=== PATIENT | female | born 1960 | race American Indian/Alaskan Native ===

== ENCOUNTER 2018-11-11 21:58 | Emergency (ER) | payer MEDICARE ==
--- NOTE | 2018-11-11 22:45 | Emergency Department Report ---
Chief Complaint: GI Bleed Stated Complaint: BLOOD CLOTS IN STOOL Time Seen by Provider: 11/11/18 22:42 - HPI History of Present Illness: generalized abd cramping pt had one episode of bright red blood which she says was a moderate amount no N/V/D denies any hx of hemorrhoids pt had a colonoscopy, a year ago which she states was normal hx of breast CA, 5 years in remission, double mastectomy 2011 mother from colon CA at age 42 MSE screening note: Focused history and physical exam performed. Due to findings the following was ordered: CBC, CMP, type and screen ED Disposition for MSE Condition: Stable
[2018-11-11 23:07] LABS: Basophils # (Auto) 0.1 K/mm3 (0.0-0.1); Basophils % (Auto) 0.8 % (0.0-1.8); Eosinophils # (Auto) 0.1 K/mm3 (0.0-0.4); Eosinophils % (Auto) 1.4 % (0.0-4.3); Hematocrit 40.3 % (30.3-42.9); Hemoglobin 13.5 gm/dl (10.1-14.3); Lymphocytes # (Auto) 3.1 K/mm3 (1.2-5.4); Lymphocytes % (Auto) 39.5 % (13.4-35.0); Mean Corpuscular HGB Conc 33 % (30-34); Mean Corpuscular Volume 84 fl (79-97); Monocytes # (Auto) 0.4 K/mm3 (0.0-0.8); Monocytes % (Auto) 4.6 % (0.0-7.3); Platelet Count 286 K/mm3 (140-440); Red Blood Count 4.79 M/mm3 (3.65-5.03); Red Cell Distribution Width 16.4 % (13.2-15.2)
[2018-11-11 23:31] LABS: Alanine Aminotransferase 14 units/L (7-56); BUN/Creatinine Ratio 16; Blood Urea Nitrogen 13 mg/dL (7-17); Calcium 9.3 mg/dL (8.4-10.2); Hemolysis Index 6
--- NOTE | 2018-11-12 01:19 | Emergency Department Report ---
ED GI Bleed HPI - General Chief complaint: GI Bleed Stated complaint: BLOOD CLOTS IN STOOL Time Seen by Provider: 11/11/18 22:42 Source: patient Mode of arrival: Ambulatory Limitations: No Limitations - History of Present Illness Initial comments: 58-year-old female presents to the ED with rectal bleeding. Patient states she began to have periumbilical cramping abdominally she needed to have a bowel movement. Patient states when she went to the bathroom she passed blood rectally. Patient denies history of previous episodes of GI bleed. Patient d enies nausea or vomiting. MD complaint: gross hematochezia -: This evening Location: periumbilical Radiation: none Severity scale (0 -10): 9 Quality: cramping Consistency: now resolved Improves with: none Worsens with: none Associated Symptoms: denies: nausea, vomiting, fever/chills - Related Data Allergies Allergy/AdvReac Type Severity Reaction Status Date / Time No Known Allergies Allergy Unverified 11/11/18 22:00 ED Review of Systems ROS: Stated complaint: BLOOD CLOTS IN STOOL Other details as noted in HPI Comment: All other systems reviewed and negative Constitutional: denies: fever Gastrointestinal: abdominal pain, hematochezia. denies: nausea, vomiting, diarrhea, constipation ED Past Medical Hx - Past Medical History Previous Medical History?: Yes Hx of Cancer: Yes (Breast Ca-remission x5 yrs) - Surgical History Additional Surgical History: double mastectomy 2011 - Social History Smoking Status: Never Smoker Substance Use Type: None ED Physical Exam - General Limitations: No Limitations General appearance: alert, in no apparent distress - Head Head exam: Present: atraumatic, normocephalic - Eye Eye exam: Present: normal appearance - ENT ENT exam: Present: mucous membranes moist - Neck Neck exam: Present: normal inspection - Respiratory Respiratory exam: Present: normal lung sounds bilaterally. Absent: respiratory distress - Cardiovascular Cardiovascular Exam: Present: regular rate, normal rhythm - GI/Abdominal GI/Abdominal exam: Present: soft. Absent: distended, tenderness - Rectal Rectal exam: Present: heme (-) stool, other (red mucous on exam) - Extremities Exam Extremities exam: Present: normal inspection - Neurological Exam Neurological exam: Present: alert, oriented X3 - Psychiatric Psychiatric exam: Present: normal affect, normal mood - Skin Skin exam: Present: warm, dry, intact, normal color. Absent: rash ED Course Vital Signs 11/11/18 11/12/18 11/12/18 22:42 01:11 02:00 Temperature 98.8 F 98.7 F Pulse Rate 95 H 80 Respiratory 16 15 Rate Blood Pressure 164/81 136/62 Blood Pressure 149/82 [Left] O2 Sat by Pulse 97 99 88 Oximetry - Reevaluation(s) Reevaluation #1: 11/12/18 01:27 Rectal exam reveals red mucous that is NOT guiac positive. Asked pt if she ate or drank anything red in color today. Pt reports she had an Icee earlier that was red in color. Stool findings may be due to this drink. ED Medical Decision Making - Lab Data Result diagrams: 11/11/18 22:50 11/11/18 22:50 - Radiology Data Radiology results: report reviewed, image reviewed - Medical Decision Making Vitals normal. Hemoglobin normal. Pain resolved. Guiac negative, but red substance in rectal vault. Likely from "Starburst Icee" that the patient drank earlier today. CT negative, except for ovarian cyst that pt is already aware of. Will d/c at this time. Return precautions given. - Differential Diagnosis GI bleed, food dye in stool, diverticulitis, diverticulosis Critical care attestation.: If time is entered above; I have spent that time in minutes in the direct care of this critically ill patient, excluding procedure time. ED Disposition Clinical Impression: Abdominal pain Disposition: -01 TO HOME OR SELFCARE Is pt being admited?: No Condition: Stable Instructions: Abdominal Pain (ED) Referrals: [facility] [Provider Group] - 3-5 Days Forms: Accompanied Note Time of Disposition: 03:56
[2018-11-12 03:13] VITALS: BP 136/62
--- NOTE | 2018-11-12 03:33 | Cat Scan Report ---
PROCEDURE: CT ABDOMEN PELVIS W CON TECHNIQUE: Computerized axial tomography of the abdomen and pelvis was performed after the IV inject ion of iodinated nonionic contrast. CT DOSE LENGTH PRODUCT: mGycm HISTORY: abd pain, rectal bleeding COMPARISONS: None . FINDINGS: Visualized lower thorax: No significant abnormality. Liver: Liver size is normal. There is a 1.5 cm area of hypoattenuation in the anterior right lobe the liver. There are a few subcentimeter areas of hypoattenuation, small cysts are suspected.. Spleen: Normal size and attenuation. Gallbladder and biliary system: Gallbladder is absent. There is no dilatation of the biliary ductal s ystem. Pancreas: Normal. Adrenals: Right adrenal gland has normal appearance. There is a calcified density measuring 1 cm on t he left adrenal gland. Calcified adenoma is suspected. Kidneys: Both kidneys have normal size and appearance. No hydronephrosis.. GI tract: The stomach is normal. There is a small hiatal hernia. The small bowel has a normal calibe r. No obstruction is seen. The cecum and appendix are normal. The colon is normal. . Lymph nodes and mesentery: Normal. Vasculature: Normal.. Bladder: Normal. Reproductive organs: Normal. Peritoneum: There is a 3 cm dominant cyst on the left ovary. The uterus is absent.. Musculoskeletal structures: No significant abnormality. Other: None . IMPRESSION: There is no evidence of intestinal or urinary tract obstruction. No ileus or enteritis. There is a 3 cm dominant cyst on the left ovary. The uterus is absent. Previous cholecystectomy. . This document is electronically signed by Vivien Donahue DO., November 12 2018 03:31:34 AM ET
== END 2018-11-12 04:17 | disposition home or self-care (01) ==
LOC: ED 21:58
DX: R10.33 Periumbilical pain (principal); K62.5 Hemorrhage of anus and rectum; Z85.3 Personal history of malignant neoplasm of breast
CPT/HCPCS: 36415; 74177; 80053; 85025; 86850; 86900; 86901; 93005; 93010; 99284; Q9967